=== PATIENT | male | born 1985 | race Caucasian/White ===

== ENCOUNTER 2024-11-07 20:26 | Emergency (ER) | payer MEDICARE, MEDICAID ==
[~2024-11-07] VITALS: Ht 162.6 cm; Wt 79.0 kg
[2024-11-07 20:32] VITALS: TEMP 97.5
[2024-11-07] MEDS: ibuprofen tablet 400 MG TABLET PO ONE (21:47)
--- NOTE | 2024-11-07 21:48 | RADIOLOGY REPORT ---
CLINICAL INDICATION: hx fracture 4 mos ago with surgery, now having ankle pain TECHNIQUE: DI TIB/FIB 2 VWS Comparison: None FINDINGS/IMPRESSION: : Intramedullary nail and interlocking screw fixation traversing a comminuted distal right fibular frac ture. Partially threaded screw through a mildly displaced medial malleolus fracture. There are 2 synd esmotic screws. No periprosthetic lucency or new fracture. Subcutaneous edema in the distal right lower extremity more pronounced about the right ankle. Dorsal and plantar calcaneal enthesophyte.
[2024-11-07] MEDS ORDERED: CEPH-585 PO (22:12)
--- NOTE | 2024-11-07 22:18 | Physician Documentation ---
History of Present Illness ~ Chief Complaint: Foot pain Stated Complaint: FOOT INFECTION Time Seen by MD: 21:01 OK to notify your PCP?: Yes Source: patient, retirement records, other ([employer]) Mode of Arrival: EMS Exam Limitations: no limitations HPI 39-year-old male presents via EMS for right leg pain. He has down syndrome and is severely developmentally delayed. His caregiver reports that he had tib-fib surgery approximately 4 months ago and then was placed in a rehab center for physical therapy for the past 2 months. He was discharged 4 days ago and has been wearing an Venkatesh wrap over his sock. Caregiver reports that a wound care nurse has only come out once but there are plans for her to come on a regular basis. The ankle is painful to the touch and he has not received any medication for his pain prior to arrival. Tetanus witin 5 years: No (UNK) Medication Reconciliation Allergies: Coded Allergies: haloperidol (Verified Allergy, Intermediate, 11/07/24) risperidone (Verified Allergy, Unknown, 11/07/24) Scheduled Cephalexin*Monohydrate* (Keflex*), 1 CAP PO Q12H Past Medical History Past Medical History: Gout, Schizophrenia Other Past Medical History: Down syndrome, severe developmental delay Other Past Surgical History: Tib-fib fracture repair with hardware Review of Systems All Other Systems at this time: Reviewed and Negative Physical Exam Vital Signs: RN Vital Signs have been reviewed: Yes, Temperature: 97.5, Source: Oral, Heart Rate: 92, Respiratory Rate: 18, BP: 103/66, Pulse Oximetry: 98, Weight: 79.000 Pulse Oximetry Reflects: adequate oxygenation Physical Exam General: Alert, no distress. HEENT: No injection, moist mucous membranes. Neck: Full range of motion. Respiratory: No respiratory distress, equal chest rise and fall. Chest: No accessory muscle use. Cardiovascular: Regular rate and rhythm. Gastrointestinal: Nondistended. Extremities: Normal range of motion, no deformity, tenderness to palpation of right ankle with slight edema and erythema. Surgical incision scars to medial and lateral portion of right ankle with some scabbing and dry skin buildup over entire foot. Neurologic: Oriented x4. Psychiatric: Normal mood and affect, per caregiver. Progress Results/Orders Reviewed/noted all lab results: Yes Results/Orders Orders - CECILIO SCHWARZ INFORMATION TECH Tib/Fib (11/07/24 21:08) Completed Orders - CECILIO SCHWARZ INFORMATION TECH Tib/Fib (11/07/24 21:08) Ibuprofen Tablet (Motrin Tablet) (11/07/24 21:10) Medications Received in ER Medications (Trade) Dose Ordered Sig/Juliette Route PRN Reason Start Time Stop Time Status Last Admin Dose Admin (Motrin tablet) 400 mg ONCE ONCE PO 11/07/24 21:10 11/07/24 21:44 DC 11/07/24 21:47 400 MG Vital Signs 11/07/24 11/07/24 20:32 22:35 Temp 97.5 Pulse 92 88 Resp 18 20 B/P (MAP) 103/66 104/68 Pulse Ox 98 98 EKG/XRAY/CT/US/VASC/MRI Bone/Soft Tissue X-Ray (Ext.) : Additional Comment Right tib-fib x-ray as interpreted by me; no joint effusion, no acute fracture, no dislocation. There is hardware in place to tibia and fibula. Medical Decision Making Additional info obtained from: old records, edging machine feeder Findings He has a large amount of skin buildup on his right foot which I attempted to debride some but he was not cooperative. There were some scabbing areas that appear to be dry blood, I was unable to debride these areas so I am not sure with the tissue underneath looks like there is slight erythema around the scab. He was complaining of pain the entire time and his caregiver states that he says out whenever he is touched even if it is not on that foot. I gave him some ibuprofen to address his pain. I obtained tib-fib X ray to assess his surgical site to rule out any septic joint, hardware infection or gout. Due to the slight erythema and tenderness to palpation of right ankle, I prescribed Keflex to treat possible cellulitis which was sent to his pharmacy. Ankle Diff Dx:Considerations: Include: Gout, Neurovascular injury, Open fracture, Osteomyelitis, Septic, Ulcer Departure Disposition: 01 HOME / SELF CARE / HOMELESS Impression: Primary Impression: Cellulitis Condition: Stable Discharge Instructions: Cellulitis Additional Instructions: His foot needs to be exfoliated to help get rid of all the dry skin that gathered underneath of his splint. Follow up with your primary care provider within the next week and return back here for any new or worsening symptoms. 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 After reviewing the individual's medical complaints with presenting symptoms and performing an appropriate physical examination, it was determined that no immediate life- threatening emergency medical condition is present. This individual is also not a women having contractions. Signature Scribe Signature: . Attestation: Scribed for Cecilio Schwarzp by Cecilio Alex NP . 11/07/24 23:23 Parts of this note were created using [email or web address] voice recognition software program . While efforts were made to correct any mistakes made by this voice recognition software program, nonsensical phrases may remain in this note. In addition, there may be errors and syntax, grammar, content and spelling. CECILIO SCHWARZP Nov 07, 2024 22:18
[2024-11-07 22:35] VITALS: BP 104/68; PULSE 88; RESP 20; O2SAT 98
== END 2024-11-07 22:46 | disposition home or self-care (01) ==
LOC: ER 20:27
DX: L03.115 Cellulitis of right lower limb (principal); F20.9 Schizophrenia, unspecified; Z88.8 Allergy status to other drugs, medicaments and biological substances
CPT/HCPCS: 73590; 99283